=== PATIENT | female | born 1985 | race Caucasian/White ===

== ENCOUNTER 2025-02-06 18:55 | Inpatient (IN) | payer OTHER, SELFPAY ==
--- NOTE | ~2025-02-06 | CT_ITS ---
CLINICAL HISTORY: Abscess CT Abdomen and Pelvis W Contrast COMPARISON: None provided FINDINGS: Normal liver. Normal spleen. Normal kidneys. Normal adrenal glands. Normal pancreas. No visible cholelithiasis. No biliary dilation. No evidence of bowel obstruction or colitis. Normal appendix. Unremarkable bladder. Unremarkable uterus. No ascites. No pneumoperitoneum. No lymphadenopathy. No acute fracture. Mild degenerative changes in the spine. No abdominal aortic aneurysm. Fat-containing umbilical hernia. Upper anterior left labia and lower left anterior pelvic wall subcutaneous fat stranding and focal skin thickening. No visible soft tissue abscess. IMPRESSION: Findings consistent with upper anterior left labia and lower left anterior pelvic wall cellulitis. Nonemergent/incidental findings above. This document has been electronically signed by: Tevin Augustin MD on 02/07/2025 03:23:27
[2025-02-06 19:59] VITALS: BP 218/111; PULSE 120; RESP 16; TEMP 37.7; O2SAT 98; BMI 42.1
--- NOTE | 2025-02-06 19:59 | ED.SKABFB ---
HPI - Skin/Abscess/Foreign Bdy General Chief complaint: Skin/Abscess/Foreign Body Stated complaint: abscess groin may need to be drained Time Seen by Provider: 02/06/25 20:55 History of Present Illness ED Provider: Raheel Garcia MD HPI narrative: Patient reports pustule in the left pubic area. She shaves in the region. She says over the past few days it is growing despite self prescribing Keflex. Started feeling diaphoretic ill slightly lightheaded today came in febrile tachycardic. Sepsis activated by previous provider at triage Related Data Home Medications ?Medication ?Instructions ?Recorded ?Confirmed insulin lispro 100 unit/mL 34 - 40 unit continuous 02/07/25 02/07/25 subcutaneous solution (Humalog subcutaneous infusion DIRECTED U-100 Insulin) metformin 1,000 mg tablet 1,000 mg PO BID 02/07/25 02/07/25 nifedipine 60 mg tablet,extended 60 mg PO DAILY 02/07/25 02/07/25 release 24 hr vit no.133-ferrous 1 tab PO DAILY 02/07/25 02/07/25 fumarate 28 mg-folic acid 800 mcg tablet () Previous Rx's ?Medication ?Instructions ?Recorded amoxicillin 875 mg-potassium 1 tab PO Q12H 8 days #16 tabs 02/08/25 clavulanate 125 mg tablet doxycycline monohydrate 100 mg 100 mg PO BID 8 days #16 tabs 02/08/25 tablet Allergies Allergy/AdvReac Type Severity Reaction Status Date / Time No Known Allergies Allergy Verified 02/06/25 20:02 [facility] Past Medical History Medical History Non-insulin dependent type 2 diabetes mellitus Hypertension Social History Social History Household Members: Spouse Housing: House Do you presently have visiting nurse or other home services: No Patient Tobacco Use Status: Never used Tobacco Substance Use Type: Marijuana service: No Physical Exam Vital Signs: Vital Signs: Last Vital Signs Temp 97.0 F 02/08/25 12:32 Pulse 98 02/08/25 12:32 Resp 18 02/08/25 12:32 BP 130/80 02/08/25 12:32 Pulse Ox 98 02/08/25 12:32 O2 Del Method Room Air 02/08/25 12:32 BMI result Body Mass Index 42.1 Const: Other: EXAM: Gen: Alert, awake, well appearing, well hydrated. Diaphoretic Head: Atraumatic Eyes: Anicteric, Normal conjunctiva. ENT: Moist mucosa, no pallor. ? Neck: Supple. Skin: ?Proximally 2-3 cm diameter fluctuant erythematous area with central pustule in the left pubic region Respiratory: Breathing comfortably, No distress.Clear to auscultation bilaterally, symmetric chest expansion, No wheeze, rales, ronchi. Cardiovascular: Tachycardic and rhythm. No murmurs or rub. Well perfused periphery, warm extremities. No edema. ? Abdominal: No FOCAL TENDERNESS. Soft, no objective distension. No palpable masses or obvious organomegaly. ?No guarding, no rebound tenderness or other peritoneal findings. : No flank tenderness. Neuro: Alert. Gross movement of all extremities intact. ? Psych: Calm. Cooperative. MSK: No grossly visible deformity. 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 DM: last glucose checked yesterday 200 left groin abscess started 4 days ago, size of half dollar, started on keflex 500 mg 4x a day No hx of this in past, did sitz baths no change tachy and high BP, T 99.8 oral, does not appear toxic dry mucous membranes POC glucose: 211 IVF not currently on anything CLOMID only, U/S on to determine if she can get FET Plans: basic labs tylenol, ordered lactic acid just in case as this might be concerning for early sepsis. Reevaluation(s) Reevaluation #1: Signed up/assumed care at 2054. Vitals and presentation suggest sepsis. IV abx/30cc/kg bolus ordered. PT only needs 1710cc basef on ideal body wt Time: 21:04 Medications Administered Discontinued Medications Generic Name Dose Route Start Last Admin Trade Name Freq PRN Reason Stop Dose Admin Acetaminophen 975 mg 02/06/25 20:05 02/06/25 20:08 Acetaminophen 325 Mg Tablet PO 02/06/25 20:06 975 mg ONCE ONE Administration Acetaminophen 650 mg 02/06/25 22:09 02/08/25 04:23 Acetaminophen 325 Mg Tablet PO 650 mg Q6H PRN Administration Pain, Mild 1-3,fever,headache Ceftriaxone Sodium 2 gm 02/06/25 20:59 02/06/25 21:12 Ceftriaxone Sodium 2 Gm Vial IVPUSH 02/06/25 21:00 2 gm ONCE ONE Administration Enoxaparin Sodium 40 mg 02/06/25 23:00 02/07/25 22:58 Enoxaparin Sodium 40 Mg/0.4 Ml Syringe SUBCUT 40 mg Q24H AGUSTINA Administration Lactated Ringer's 3,441 mls @ 3,441 mls/hr 02/06/25 20:58 02/07/25 00:00 Lr 30 ml/kg infuse over 1 hr (3441 ml) 02/06/25 21:57 Infused IV Infusion .Q1H ONE Vancomycin HCl 1,500 mg/ 500 mls @ 333.333 mls/hr 02/06/25 21:32 02/07/25 00:08 Sodium Chloride IV 02/06/25 23:01 Infused ONCE ONE Infusion Piperacillin Sod/Tazobactam 100 mls @ 200 mls/hr 02/06/25 23:00 02/08/25 12:14 Sod 4.5 gm/ Sodium Chloride IV Infused Q6H AGUSTINA Infusion Vancomycin HCl 1,500 mg/ 500 mls @ 333.333 mls/hr 02/07/25 08:00 02/07/25 23:35 Sodium Chloride IV Not Given Q12H AGUSTINA Lactated Ringer's 1,000 mls @ 999 mls/hr 02/07/25 02:30 02/07/25 08:43 Lr IV 02/07/25 03:30 Infused .Q1H1M AGUSTINA Infusion Vancomycin HCl 1,250 mg/ 250 mls @ 166.667 mls/hr 02/07/25 22:00 02/08/25 06:41 Sodium Chloride IV Infused Q8H AGUSTINA Infusion Insulin Human Lispro 0 unit 02/07/25 07:30 02/08/25 11:40 Insulin Lispro 100 Unit/Ml 3 Ml Vial SUBCUT 4 unit QIDACHS AGUSTINA Administration Protocol Iohexol 100 ml 02/07/25 01:47 02/07/25 01:48 Iohexol 350 Mg/Ml 100 Ml Infus..Btl IV 02/07/25 01:48 100 ml ONCE ONE Administration Ketorolac Tromethamine 30 mg 02/07/25 22:10 02/07/25 22:58 Ketorolac Tromethamine 30 Mg/Ml Vial IVPUSH 02/07/25 22:11 30 mg ONCE ONE Administration Lidocaine/Epinephrine 10 ml 02/06/25 21:32 02/06/25 23:03 Lidocaine Hcl 1%/Epi 1:100,000 20 Ml Vial INFILTRATI 02/06/25 21:33 10 ml ONCE ONE Administration Nifedipine 60 mg 02/07/25 11:15 02/08/25 07:42 Nifedipine Er 60 Mg Tab.Er.24 PO 60 mg DAILY AGUSTINA Administration Protocol Ondansetron HCl 4 mg 02/06/25 22:09 02/08/25 04:23 Ondansetron Hcl 4 Mg/2 Ml Vial IVPUSH 4 mg Q8H PRN Administration Nausea and Vomiting Sodium Chloride 3 ml 02/07/25 00:00 02/08/25 07:44 0.9 % Sodium Chloride Flush 3 Ml Syringe IVFLUSH 3 ml QSHIFT AGUSTINA Administration Medical Decision Making Medical Decision Making [facility] Narrative: 39-year-old female with pustule/abscess cellulitis in the left pubic region. Diaphoretic no other focal infectious symptomatology. She is tachycardic but not hypotensive. Not ill or toxic looking. She has no other clear source of infection side from the skin infection. Incision and drainage was performed at the bedside culture sent in order to initiate source control. Lactate elevated but not over 4. No septic shock diagnosed. Continuous reassessment with fluid hydration. Broad-spectrum antibiotics initiated Differential Diagnosis Abscess, cellulitis, sepsis, severe sepsis, folliculitis Lab Data [facility] Lab Attestation statement: I reviewed the patient's lab results. 02/08/25 05:31 02/08/25 05:31 Labs: Lab Results 02/06/25 02/06/25 Range/Units 20:05 20:30 WBC 14.8 H (4.8-10.8) X10*3/uL RBC 4.82 (4.20-5.50) X10*6/uL Hgb 13.9 (12.0-16.0) g/dl Hct 40.2 (37.0-47.0) % MCV 83.4 (80.0-98.0) fL MCH 28.8 (27.0-33.0) pg MCHC 34.6 (31.0-35.0) g/dl RDW 12.4 (11.0-16.0) % Plt Count 379 (160-400) X10*3/uL MPV 8.9 L (9.4-12.3) fL Immature Gran % (Auto) 0.7 H (0.0-0.4) % Neut % (Auto) 74.1 H (45-73) % Lymph % (Auto) 16.0 L (20-40) % [place] % (Auto) 6.8 (2-11) % Eos % (Auto) 2.0 (0-4) % Baso % (Auto) 0.4 (0-2) % Lymph # (Auto) 2.4 (1.2-4.9) X10*3/uL [place] # (Auto) 1.0 (0.1-1.2) X10*3/uL Eos # (Auto) 0.3 (0.0-0.4) X10*3/uL Baso # (Auto) 0.1 (0.0-0.2) X10*3/uL Abs Immat Gran (auto) 0.11 H (0.00-0.03) X10*3/uL Absolute Neuts (auto) 10.9 H (2.0-8.3) x10*3/uL Absolute Nucleated RBC 0.000 (0.0-0.012) X10*3/uL Nucleated RBC % (auto) 0.0 (0.0-0.2) /100WBC Sodium 136 (135-145) mmol/L Potassium 3.7 (3.3-5.1) mmol/L Chloride 99 (96-108) mmol/L Carbon Dioxide 24 (22-29) mmol/L Anion Gap 17 (12-20) BUN 8 L (9-16) mg/dL Creatinine 0.68 (0.5-1.4) mg/dL Estim Creat Clear Calc 141.8 Estimated GFR > 60 POC Glucose 211 H (60-115) mg/dL Random Glucose 219 H (60-115) mg/dL Lactic Acid 3.0 H* (0.5-2.0) mmol/L Calcium 9.7 (8.4-10.2) mg/dL Total Bilirubin 0.3 (0.0-1.0) mg/dL AST 37 H (5-31) U/L ALT 48 H (0-31) U/L Alkaline Phosphatase 95 (39-117) U/L Total Protein 8.3 H (6.5-8.0) g/dL Albumin 5.0 (3.5-5.0) g/dL Independent Interpretation I performed an independent interpretation of an: EKG (Rhythm strip sinus tachycardia) Procedures Abscess I/D Site: abdomen (Lower left pubic region) Side (if applicable): left Local Anesthetic: lidocaine 1% and with epi Amount of anesthesia used (mL): 8 Technique: incised with blade Amount of fluid expressed (mL): 2 Sent for culture/gram staining?: Yes Irrigation: Yes Packing used?: none Complications: pain Critical Care Time Critical Care Time Critical Care Time: Yes Total Critical Care Time: 30 Attestation: ED Critical Care: Authorized and Performed by: Raheel Garcia MD Total critical care time: Approximately 30 Due to a high probability of clinically significant, life threatening deterioration, the patient required my highest level of preparedness to intervene emergently and I personally spent this critical care time directly and personally managing the patient. This critical care time included obtaining a history; examining the patient; pulse oximetry; ordering and review of studies; arranging urgent treatment with development of a management plan; evaluation of patient's response to treatment; frequent reassessment; and, discussions with other providers. This critical care time was performed to assess and manage the high probability of imminent, life-threatening deterioration that could result in multi-organ failure. It was exclusive of separately billable procedures and treating other patients and teaching time. Discharge Plan Discharge Clinical Impression: Abscess of vagina, Sepsis, Hyperglycemia Patient Disposition: Admitted As Inpatient Interventions: Admission Worksheet (ED) Last Done: 02/07/25 06:36 Discharge Date/Time: 02/07/25 08:13
[2025-02-06] MEDS: Acetaminophen 325 MG TABLET 975 MG PO (20:08)
[2025-02-06 20:11] LABS: Glucose, Whole Blood 211 mg/dL (60-115)
[2025-02-06 20:33] VITALS: BP 172/98; PULSE 120; RESP 22; TEMP 37.8; O2SAT 96
[2025-02-06 20:40] LABS: MANUAL DIFF FLAG NO
[2025-02-06 20:41] LABS: Basophils Absolute Auto 0.1 X10*3/uL (0.0-0.2); Basophils Percent Auto 0.4 % (0-2); Eosinophils Absolute Auto 0.3 X10*3/uL (0.0-0.4); Hematocrit 40.2 % (37.0-47.0); Hemoglobin 13.9 g/dl (12.0-16.0); Imm Gran Abs Auto 0.11 X10*3/uL (0.00-0.03); Imm Gran Pct Auto 0.7 % (0.0-0.4); Lymphocytes Absolute Auto 2.4 X10*3/uL (1.2-4.9); Mean Corpuscular HGB Conc 34.6 g/dl (31.0-35.0); Mean Corpuscular Hemoglobin 28.8 pg (27.0-33.0); Mean Corpuscular Volume 83.4 fL (80.0-98.0); Mean Platelet Volume 8.9 fL (9.4-12.3); Monocytes Percent Auto 6.8 % (2-11); Neutrophils Absolute Auto 10.9 x10*3/uL (2.0-8.3); Neutrophils Percent Auto 74.1 % (45-73); Platelet Count 379 X10*3/uL (160-400); Red Blood Count 4.82 X10*6/uL (4.20-5.50); Red Cell Distribution Width 12.4 % (11.0-16.0); White Blood Count 14.8 X10*3/uL (4.8-10.8)
[2025-02-06 20:54] LABS: Alanine Aminotransferase 48 U/L (0-31); Alkaline Phosphatase 95 U/L (39-117); Anion Gap 17 (12-20); Aspartate Amino Transferase 37 U/L (5-31); Bilirubin Total 0.3 mg/dL (0.0-1.0); Blood Urea Nitrogen 8 mg/dL (9-16); Calcium 9.7 mg/dL (8.4-10.2); Carbon Dioxide 24 mmol/L (22-29); Chloride 99 mmol/L (96-108); Creatinine Clr Calc Pharmacy 141.8; Estimated Glomerular Filt Rate > 60; Glucose Random 219 mg/dL (60-115); Potassium 3.7 mmol/L (3.3-5.1); Sodium 136 mmol/L (135-145); Total Protein 8.3 g/dL (6.5-8.0)
[2025-02-06] MEDS: cefTRIAXone sodium 2 GM VIAL IVPUSH (21:12)
[2025-02-06 21:28] VITALS: BP 167/85; PULSE 107; RESP 19; TEMP 37.6; O2SAT 96
[2025-02-06] MEDS: vancomycin HCL 1,500 MG in 0.9 % Sodium Chloride 500 ML 333.33 MG IV (21:53)
--- NOTE | 2025-02-06 22:10 | PM.IMHP ---
History of Present Illness Date of Service: 02/07/25 Chief Complaint: abscess This has a 39-year-old female with pertinent history of als-wnvaabc-pfodouvox diabetes mellitus, hypertension who presents to the emergency department for concerns of groin abscess. Patient states her symptoms started 4 days prior to presentation. 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 Patient noticed swelling of her left groin with redness and pain. Her symptoms were progressive. Patient started Keflex 1 day prior to presentation and did not notice any improvement in symptoms. She denies fever, chills, chest pain, palpitations, shortness of breath, abdominal pain, changes in urinary or bowel habits. Patient denies any previous abscess but had a Bartholin cyst. In the emergency department, patient was found to be septic and I and D performed by ER physician. Leukocytosis of 14 and lactic acid 3. Patient was given IV fluids and broad-spectrum IV antibiotics. Review of Systems Constitutional: Constitutional: Reports no additional constitutional complaints Cardiovascular: Cardiovascular: Reports no additional cardiovascular complaints Respiratory: Respiratory: Reports no additional respiratory complaints Gastrointestinal: Gastrointestinal: Reports no additional gastrointestinal complaints Genitourinary: Genitourinary: Reports no additional female genitourinary complaints [facility] Medical History Non-insulin dependent type 2 diabetes mellitus Hypertension Pertinent family history: No family history of early CAD Social History Patient Tobacco Use Status: Never used Tobacco Smoked in Last 30 Days: No Use of substances other than those prescribed or required for medical reasons: Yes Substance Use Type: Marijuana Substance Use Frequency: Occasionally Advance Directives: No Advance Directives Information Provided: No Do you have a plan to hurt others: No Plan Nutrition Risks: No Nutritional Risk Patient : No Meds Allergies Allergy/AdvReac Type Severity Reaction Status Date / Time No Known Allergies Allergy Verified 02/06/25 20:02 Active Medications: Current Medications Vancomycin HCl 1,500 mg/ (Sodium Chloride) 500 mls @ 333.333 mls/hr IV ONCE ONE Stop: 02/06/25 23:01 Last Admin: 02/06/25 21:53 Dose: 333.33 mls/hr Physical Exam Vital Signs and Narrative: Vital Signs: Last Vital Signs Temp 99.7 F 02/06/25 21:28 Pulse 107 H 02/06/25 21:28 Resp 19 02/06/25 21:28 BP 167/85 H 02/06/25 21:28 Pulse Ox 96 02/06/25 21:28 O2 Del Method Room Air 02/06/25 21:28 BMI result Body Mass Index 42.1 Middle-aged female lying in bed in no distress Neck supple, no JVD Regular rate and rhythm, S1-S2 heard Regular breath sounds bilaterally, no wheezing or crackles appreciated Abdomen soft nontender, no guarding, no rigidity Patient is awake, alert and oriented to self, place, time and person ; no focal motor deficit Examination performed 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 the 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); left groin with swelling, erythema and tenderness draining serosanguineous fluid Psych: Normal mood No pedal edema Results Labs 02/06/25 20:30 02/06/25 20:30 Labs: Laboratory Results - last 24 hr 02/06/25 02/06/25 20:05 20:30 MCV 83.4 MCH 28.8 MCHC 34.6 RDW 12.4 Plt Count 379 MPV 8.9 L Immature Gran % (Auto) 0.7 H Neut % (Auto) 74.1 H Lymph % (Auto) 16.0 L [place] % (Auto) 6.8 Eos % (Auto) 2.0 Baso % (Auto) 0.4 Lymph # (Auto) 2.4 [place] # (Auto) 1.0 Eos # (Auto) 0.3 Baso # (Auto) 0.1 Abs Immat Gran (auto) 0.11 H Absolute Neuts (auto) 10.9 H Absolute Nucleated RBC 0.000 Nucleated RBC % (auto) 0.0 Anion Gap 17 Estim Creat Clear Calc 141.8 Estimated GFR > 60 POC Glucose 211 H Random Glucose 219 H Lactic Acid 3.0 H* Calcium 9.7 Total Bilirubin 0.3 AST 37 H ALT 48 H Alkaline Phosphatase 95 Total Protein 8.3 H Albumin 5.0 Assessment and Plan (1) Sepsis: Status: Acute (2) Abscess of vagina: Status: Acute (3) Hyperglycemia: Status: Acute Plan This has a 39-year-old female with pertinent history of jfw-gzbenvk-uoxtztlht diabetes mellitus, hypertension who presents to the emergency department for concerns of groin abscess. #. Sepsis due to vaginal abscess: Will admit patient with broad-spectrum IV antibiotics. Resuscitated with IV crystalloids. Lactic acid and blood culture obtained. I and D performed by ER physician, culture pending. Obtaining CT of pelvis to delineate underlying anatomy. May need gynecologic consult pending imaging #. Acute lactic acidosis due to sepsis #. Elevated transaminases due to sepsis #. Zpg-ohepkxr-dspjwwnli diabetes mellitus with hyperglycemia: Initiating Accu-Cheks with sliding scale insulin before meals and at bedtime #. Hypertension: On nifedipine #. Obesity class 3: Diet and exercise Med rec pending DVT prophylaxis: Lovenox Full code Admit as inpatient and will require two night minimum hospital stay for IV antibiotics (as above), which is not possible in a lesser acute setting. Quality Stroke Does the patient have a stroke diagnosis?: No VTE Prior VTE?: No VTE Risk Level:: Medical - moderate - high VTE Device Contraindication: Treatment Not Indicated VTE Drug Contraindication: N/A - Med Ordered
[2025-02-06 22:39] LABS: Reflex Lactate? Lactic Acid Added
[2025-02-06 22:50] LABS: HCG Quantitative < 2 mIU/mL
[2025-02-06] MEDS: Enoxaparin Sodium 40 MG/0.4 ML SYRINGE SUBCUT (22:58)
[2025-02-06] MEDS: Lidocaine HCl 1%/Epi 1:100,000 20 ML VIAL 10 ML INFILTRATI (23:03)
[2025-02-06 23:04] VITALS: BP 143/73; PULSE 90; RESP 19; TEMP 525.8; TEMP 978.5; O2SAT 97
[2025-02-06] MEDS: Piperacillin Sodium/Tazobactam 4.5 GM in 0.9 % Sodium Chloride 100 ML IV (23:30)
[2025-02-07 00:08] VITALS: BP 132/66; PULSE 93; RESP 22; TEMP 37.2; O2SAT 97
--- NOTE | 2025-02-07 00:10 | PC.NURSE ---
Total of 2000cc of fluids administered per MD verbal order.
[2025-02-07 00:12] LABS: ~Lactic Acid-LAB USE ONLY 2.1 mmol/L (0.5-2.0)
[2025-02-07 00:34] VITALS: BP 142/78; PULSE 89; RESP 19; O2SAT 96
[2025-02-07 00:45] LABS: Appearance Urine Clear; Color Urine Yellow; Glucose Urine UA Negative (Negative); Leukocyte Esterase Urine Small (1+) (Negative); Nitrite Urine Negative (Negative); PH 6.5 (5.0-9.0); Specific Gravity - Urine >= 1.030 (1.005-1.025); UMIC TRIGGER UACC YES; Urine Blood Negative (Negative); Urine Ketones 15 mg/dL (Negative); Urine Protein Negative (Neg-Trace)
[2025-02-07 01:02] LABS: Bacteria Urine Trace (None Seen); Hyaline Casts Urine 0-2 /LPF (0-2); RBC Urine 0-2 /HPF (0-2); UACC Culture Trigger YES; WBC Urine 0-5 /HPF (0-5)
[2025-02-07 01:47] LABS: Reflex Lactate? 2 Y
[2025-02-07] MEDS: iohexoL 350 MG/ML 100 ML INFUS..BTL IV (01:48)
[2025-02-07 02:24] LABS: ~Lactic Acid-LAB USE ONLY 3.9 mmol/L (0.5-2.0)
[2025-02-07] MEDS: Lactated Ringers 1,000 ML 999 ML IV (02:47)
[2025-02-07] MEDS: Piperacillin Sodium/Tazobactam 4.5 GM in 0.9 % Sodium Chloride 100 ML IV ×4 (04:28→22:57)
[2025-02-07] MEDS: Acetaminophen 325 MG TABLET 650 MG PO ×3 (05:17→17:37)
[2025-02-07 05:26] LABS: MANUAL DIFF FLAG NO
[2025-02-07 05:31] LABS: Basophils Percent Auto 0.4 % (0-2); Eosinophils Absolute Auto 0.1 X10*3/uL (0.0-0.4); Eosinophils Percent Auto 1.3 % (0-4); Hematocrit 35.1 % (37.0-47.0); Hemoglobin 11.9 g/dl (12.0-16.0); Imm Gran Abs Auto 0.05 X10*3/uL (0.00-0.03); Imm Gran Pct Auto 0.5 % (0.0-0.4); Lymphocytes Absolute Auto 2.1 X10*3/uL (1.2-4.9); Lymphocytes Percent Auto 21.5 % (20-40); Mean Corpuscular HGB Conc 33.9 g/dl (31.0-35.0); Mean Corpuscular Hemoglobin 28.4 pg (27.0-33.0); Mean Corpuscular Volume 83.8 fL (80.0-98.0); Monocytes Absolute Auto 0.9 X10*3/uL (0.1-1.2); Neutrophils Absolute Auto 6.5 x10*3/uL (2.0-8.3); Neutrophils Percent Auto 67.3 % (45-73); Platelet Count 303 X10*3/uL (160-400); Red Blood Count 4.19 X10*6/uL (4.20-5.50); Red Cell Distribution Width 12.5 % (11.0-16.0); White Blood Count 9.7 X10*3/uL (4.8-10.8)
[2025-02-07 05:49] LABS: Anion Gap 16 (12-20); Blood Urea Nitrogen 7 mg/dL (9-16); Calcium 8.7 mg/dL (8.4-10.2); Carbon Dioxide 23 mmol/L (22-29); Chloride 99 mmol/L (96-108); Estimated Glomerular Filt Rate > 60; Glucose Random 276 mg/dL (60-115); Potassium 4.1 mmol/L (3.3-5.1); Sodium 134 mmol/L (135-145)
[2025-02-07 05:59] VITALS: BP 146/73; PULSE 100; RESP 16; TEMP 37.4; O2SAT 95
[2025-02-07 07:26] LABS: Glucose, Whole Blood 286 mg/dL (60-115)
[2025-02-07] MEDS: Insulin Lispro 100 UNIT/ML 3 ML VIAL SUBCUT ×4 (07:47→21:15)
[2025-02-07] MEDS: vancomycin HCL 1,500 MG in 0.9 % Sodium Chloride 500 ML 333.33 MG IV (07:47)
[2025-02-07] MEDS: 0.9 % Sodium Chloride Flush 3 ML SYRINGE IVFLUSH ×3 (07:47→23:04)
[2025-02-07 08:22] LABS: Estimated Average Glucose 200 mg/dL; Hemoglobin A1c % 8.6 % (<6.0)
[2025-02-07 08:24] VITALS: BMI 42.1
--- NOTE | 2025-02-07 08:56 | PHA.MEDREC ---
Addendum entered by Gerald Mercer [facility] 02/07/25 09:49: MED REC CHECKED BY [facility] Original Note: Pharmacy Consult ? Medication Reconciliation Pharmacy has completed the medication reconciliation. Spoke to patient to confirm med list. Patient states she is no longer on Ovidrel inj and Crinone Vag cream. patient confirmed she has a Tandem insulin pump that infuses Humalog U-100 up to 35-40 daily ( PATIENT TOOK OFF PUMP PRIOR TO VISIT). Patient last had her medications yesterday
[2025-02-07 09:49] VITALS: BP 136/66; PULSE 92; RESP 16; TEMP 36.6; O2SAT 97
--- NOTE | 2025-02-07 10:54 | MHC.CM.PN ---
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
--- NOTE | 2025-02-07 11:08 | HO.PM.IMPN ---
Subjective Subjective Date of Service: 02/07/25 Interval History: F\U Vaginal abscess seens and evaluated had fever\chills overnight reporting drainage from vaginal wound no other events Review of Systems Review of Systems: Yes all other systems are reviewed and are negative Physical Exam Vital Signs: Vital Signs: Last Vital Signs Temp 98 F 02/07/25 09:49 Pulse 92 02/07/25 09:49 Resp 16 02/07/25 09:49 BP 136/66 02/07/25 09:49 Pulse Ox 97 02/07/25 09:49 O2 Del Method Room Air 02/07/25 09:49 BMI result Body Mass Index 42.1 Const: Other: Constitutional : Awake, interactive, not in distress Neck : Normal inspection, Supple Cardiovascular : RRR, no JVP, no lower extremity edema Respiratory : good bilateral air entry, no crackles, wheezes or rhonchi Gastrointestinal: soft, lax, Normal bowel sounds, Non tender Skin : Warm, Dry Neurological : Alert & oriented x3, No focal deficit Objective Data Active Medications Acetaminophen (Acetaminophen 325 Mg Tablet) 650 mg PO Q6H PRN PRN Reason: Pain, Mild 1-3,fever,headache Last Admin: 02/07/25 05:17 Dose: 650 mg Documented By: MANASA Calcium Carbonate (Calcium Carbonate 750 Mg Tab.Chew) 750 mg PO Q4H PRN PRN Reason: Heartburn Dextrose (Dextrose 50 % 25 Gm/50 Ml Syringe) 25 gm IVPUSH Q15M PRN; Protocol PRN Reason: per Hypoglycemia Standing Ord. Enoxaparin Sodium (Enoxaparin Sodium 40 Mg/0.4 Ml Syringe) 40 mg SUBCUT Q24H [facility] Last Admin: 02/06/25 22:58 Dose: 40 mg Documented By: MANASA Glucose (Glucose Gel 15 Gm Gel..Gram.) 15 gm PO Q15M PRN; Protocol PRN Reason: per Hypoglycemia Standing Ord. Piperacillin Sod/Tazobactam (Sod 4.5 gm/ Sodium Chloride) 100 mls @ 200 mls/hr IV Q6H [facility] Last Infusion: 02/07/25 04:58 Dose: Infused Documented By: MANASA Vancomycin HCl 1,500 mg/ (Sodium Chloride) 500 mls @ 333.333 mls/hr IV Q12H [facility] Last Infusion: 02/07/25 10:27 Dose: Infused Documented By: CELSO Insulin Human Lispro (Insulin Lispro 100 Unit/Ml 3 Ml Vial) 0 unit SUBCUT QIDACHS [facility]; Protocol Last Admin: 02/07/25 07:47 Dose: 6 unit Documented By: AZEB Magnesium Hydroxide (Milk Of Magnesia 30 Ml Oral.Susp) 30 ml PO DAILY PRN PRN Reason: Constipation Melatonin (Melatonin 3 Mg Tablet) 6 mg PO BEDTIME PRN PRN Reason: Insomnia Ondansetron HCl (Ondansetron Hcl 4 Mg/2 Ml Vial) 4 mg IVPUSH Q8H PRN PRN Reason: Nausea and Vomiting Pharmacy Consult (Consult Rx Vancomycin Dosing) 1 each MISCELLANE DAILY PRN PRN Reason: Consult order Sodium Chloride (0.9 % Sodium Chloride Flush 3 Ml Syringe) 3 ml IVFLUSH [facility] Last Admin: 02/07/25 07:47 Dose: 3 ml Documented By: AZEB Labs 02/07/25 04:42 02/07/25 04:42 Labs: Laboratory Results - last 24 hr 02/06/25 02/06/25 02/06/25 20:05 20:30 22:24 MCV 83.4 MCH 28.8 MCHC 34.6 RDW 12.4 Plt Count 379 MPV 8.9 L Immature Gran % (Auto) 0.7 H Neut % (Auto) 74.1 H Lymph % (Auto) 16.0 L [place] % (Auto) 6.8 Eos % (Auto) 2.0 Baso % (Auto) 0.4 Lymph # (Auto) 2.4 [place] # (Auto) 1.0 Eos # (Auto) 0.3 Baso # (Auto) 0.1 Abs Immat Gran (auto) 0.11 H Absolute Neuts (auto) 10.9 H Absolute Nucleated RBC 0.000 Nucleated RBC % (auto) 0.0 Anion Gap 17 Estim Creat Clear Calc 141.8 Estimated GFR > 60 POC Glucose 211 H Random Glucose 219 H Estimat Average Glucose Hemoglobin A1c % Lactic Acid 3.0 H* Lactic Acid F/U @ 2Hr Lactic Acid F/U @ 4Hr Calcium 9.7 Total Bilirubin 0.3 AST 37 H ALT 48 H Alkaline Phosphatase 95 Total Protein 8.3 H Albumin 5.0 Beta HCG, Quant < 2 Urine Color Urine Appearance Urine pH Ur Specific [place] Urine Protein Urine Glucose (UA) Urine Ketones Urine Blood Urine Nitrite Ur Leukocyte Esterase Urine RBC Urine WBC Ur Squamous Epith Cells Urine Bacteria Hyaline Casts 02/06/25 02/07/25 02/07/25 23:44 00:34 02:03 MCV MCH MCHC RDW Plt Count MPV Immature Gran % (Auto) Neut % (Auto) Lymph % (Auto) [place] % (Auto) Eos % (Auto) Baso % (Auto) Lymph # (Auto) [place] # (Auto) Eos # (Auto) Baso # (Auto) Abs Immat Gran (auto) Absolute Neuts (auto) Absolute Nucleated RBC Nucleated RBC % (auto) Anion Gap Estim Creat Clear Calc Estimated GFR POC Glucose Random Glucose Estimat Average Glucose Hemoglobin A1c % Lactic Acid Lactic Acid F/U @ 2Hr 2.1 H* Lactic Acid F/U @ 4Hr 3.9 H* Calcium Total Bilirubin AST ALT Alkaline Phosphatase Total Protein Albumin Beta HCG, Quant Urine Color Yellow Urine Appearance Clear Urine pH 6.5 Ur Specific [place] >= 1.030 H Urine Protein Negative Urine Glucose (UA) Negative Urine Ketones 15 Urine Blood Negative Urine Nitrite Negative Ur Leukocyte Esterase Small (1+) H Urine RBC 0-2 Urine WBC 0-5 Ur Squamous Epith Cells 6-10 Urine Bacteria Trace Hyaline Casts 0-2 02/07/25 02/07/25 04:42 07:22 MCV 83.8 MCH 28.4 MCHC 33.9 RDW 12.5 Plt Count 303 MPV 9.0 L Immature Gran % (Auto) 0.5 H Neut % (Auto) 67.3 Lymph % (Auto) 21.5 Stone % (Auto) 9.0 Eos % (Auto) 1.3 Baso % (Auto) 0.4 Lymph # (Auto) 2.1 Stone # (Auto) 0.9 Eos # (Auto) 0.1 Baso # (Auto) 0.0 Abs Immat Gran (auto) 0.05 H Absolute Neuts (auto) 6.5 Absolute Nucleated RBC 0.000 Nucleated RBC % (auto) 0.0 Anion Gap 16 Estim Creat Clear Calc 158.0 Estimated GFR > 60 POC Glucose 286 H Random Glucose 276 H Estimat Average Glucose 200 Hemoglobin A1c % 8.6 H Lactic Acid Lactic Acid F/U @ 2Hr Lactic Acid F/U @ 4Hr Calcium 8.7 D Total Bilirubin AST ALT Alkaline Phosphatase Total Protein Albumin Beta HCG, Quant Urine Color Urine Appearance Urine pH Ur Specific [place] Urine Protein Urine Glucose (UA) Urine Ketones Urine Blood Urine Nitrite Ur Leukocyte Esterase Urine RBC Urine WBC Ur Squamous Epith Cells Urine Bacteria Hyaline Casts Assessment and Plan (1) Abscess of vagina: Status: Acute (2) Sepsis: Status: Acute (3) Acute lactic acidosis: Status: Acute Plan This has a 39-year-old female with pertinent history of vtz-zhktlak-remdofihy diabetes mellitus, hypertension who presents to the emergency department for concerns of groin abscess. # Sepsis due to vaginal abscess Abscess drained in ED CT of pelvis showed upper anterior left labia and lower left anterior pelvic wall cellulitis discussed with Dr Asher, asked to be consulted if not improving on antibiotics Continue IV Vancomycin and Zosyn pending final cultures DC IV crystalloids. wound culture pending # Acute lactic acidosis due to sepsis and Metformin IV boluses given # Elevated transaminases due to sepsis improving , follow LFT # Zfj-wohxhje-atisteqlo diabetes mellitus with hyperglycemia Accu-Cheks with sliding scale insulin hold Metformin # Hypertension On nifedipine # Obesity class 3 Diet and exercise DVT prophylaxis: Lovenox Full code Admit as inpatient and will require overnight minimum hospital stay for IV antibiotics (as above), which is not possible in a lesser acute setting. Quality Stroke Does the patient have a stroke diagnosis?: No VTE Prior VTE?: No VTE Risk Level:: Medical - moderate - high VTE Device Contraindication: Treatment Not Indicated VTE Drug Contraindication: N/A - Med Ordered
[2025-02-07 11:18] LABS: Glucose, Whole Blood 208 mg/dL (60-115)
[2025-02-07] MEDS: NIFEdipine ER 60 MG TAB.ER.24 PO (11:35)
--- NOTE | 2025-02-07 14:42 | HO.WOUND ---
Wound Consult: Initial 39yr old female admitted to [facility] [place] on 02/06/25 - See progress notes and H&P for detailed history.? Wound consult placed for Labia.? Patient agreeable to assessment and photo documentation.? Patient reports the site is significantly improved since admission. S/P I&D in ED for abcess. Left Labia - Majora / suprapubic area Etiology: Abscess - S/P I&D in ED ?? Wound Bed: small open area with small scant slough noted Drainage / Odor: dried red drainage to dressing Edges: ? defined Michelle wound: ?some induration at I&D site and pink red erythema - improving per pt statement no fluctuance noted Pain: tenderness reported Goals of Treatment: ? cover with dry gauze for drainage management Recommendations: When applicable maintain blood glucose levels per Providers order. Left Labia - Cleanse with NS moist gauze, or routine showering with soap and water. Apply dry gauze dressing secure in place. Change daily. Re-consult wound care Nurse for wound deterioration or wound changes.
[2025-02-07 15:08] VITALS: BP 133/69; PULSE 94; RESP 18; TEMP 36.6; O2SAT 97
[2025-02-07 15:47] LABS: Glucose, Whole Blood 212 mg/dL (60-115)
[2025-02-07 19:27] VITALS: BP 135/86; PULSE 100; RESP 18; TEMP 36.4; O2SAT 97
[2025-02-07 20:21] LABS: Vancomycin Random 4.9 mcg/mL (15-20)
[2025-02-07 20:21] LABS: Glucose, Whole Blood 249 mg/dL (60-115)
[2025-02-07] MEDS: vancomycin HCL 1,250 MG in 0.9 % Sodium Chloride 250 ML 166.67 MG IV (21:14)
[2025-02-07] MEDS: Ketorolac Tromethamine 30 MG/ML VIAL IVPUSH (22:58)
[2025-02-07] MEDS: Enoxaparin Sodium 40 MG/0.4 ML SYRINGE SUBCUT (22:58)
[2025-02-08 04:00] VITALS: BP 110/65; PULSE 100; RESP 18; TEMP 36.9; O2SAT 96
[2025-02-08] MEDS: Acetaminophen 325 MG TABLET 650 MG PO (04:23)
[2025-02-08] MEDS: ondansetron HCL 4 MG/2 ML VIAL IVPUSH (04:23)
[2025-02-08] MEDS: Piperacillin Sodium/Tazobactam 4.5 GM in 0.9 % Sodium Chloride 100 ML IV ×2 (04:24→11:40)
[2025-02-08] MEDS: vancomycin HCL 1,250 MG in 0.9 % Sodium Chloride 250 ML 166.67 MG IV (05:06)
[2025-02-08 06:01] LABS: MANUAL DIFF FLAG NO
[2025-02-08 06:19] LABS: Basophils Absolute Auto 0.1 X10*3/uL (0.0-0.2); Basophils Percent Auto 0.3 % (0-2); Eosinophils Absolute Auto 0.2 X10*3/uL (0.0-0.4); Hematocrit 34.3 % (37.0-47.0); Hemoglobin 12.1 g/dl (12.0-16.0); Imm Gran Abs Auto 0.11 X10*3/uL (0.00-0.03); Imm Gran Pct Auto 0.6 % (0.0-0.4); Lymphocytes Absolute Auto 1.8 X10*3/uL (1.2-4.9); Lymphocytes Percent Auto 9.6 % (20-40); Mean Corpuscular HGB Conc 35.3 g/dl (31.0-35.0); Mean Corpuscular Hemoglobin 28.9 pg (27.0-33.0); Mean Corpuscular Volume 82.1 fL (80.0-98.0); Mean Platelet Volume 9.1 fL (9.4-12.3); Monocytes Absolute Auto 1.5 X10*3/uL (0.1-1.2); Monocytes Percent Auto 8.1 % (2-11); Neutrophils Absolute Auto 14.8 x10*3/uL (2.0-8.3); Neutrophils Percent Auto 80.4 % (45-73); Platelet Count 310 X10*3/uL (160-400); Red Blood Count 4.18 X10*6/uL (4.20-5.50); Red Cell Distribution Width 12.6 % (11.0-16.0); White Blood Count 18.5 X10*3/uL (4.8-10.8)
[2025-02-08 06:29] LABS: Anion Gap 16 (12-20); Blood Urea Nitrogen 5 mg/dL (9-16); Calcium 9.1 mg/dL (8.4-10.2); Carbon Dioxide 22 mmol/L (22-29); Chloride 98 mmol/L (96-108); Creatinine Clr Calc Pharmacy 163.4; Estimated Glomerular Filt Rate > 60; Glucose Random 288 mg/dL (60-115); Potassium 3.9 mmol/L (3.3-5.1); Sodium 132 mmol/L (135-145)
[2025-02-08 07:33] LABS: Glucose, Whole Blood 298 mg/dL (60-115)
[2025-02-08] MEDS: Insulin Lispro 100 UNIT/ML 3 ML VIAL SUBCUT ×2 (07:42→11:40)
[2025-02-08] MEDS: NIFEdipine ER 60 MG TAB.ER.24 PO (07:42)
[2025-02-08] MEDS: 0.9 % Sodium Chloride Flush 3 ML SYRINGE IVFLUSH (07:44)
[2025-02-08 07:45] VITALS: BP 118/60; PULSE 95; RESP 18; TEMP 36.2; O2SAT 95
--- NOTE | 2025-02-08 11:17 | PM.DS ---
DS: Providers Provider Date of Service: 02/08/25 Date of admission: 02/06/25 22:09 Date of discharge: 02/08/25 Primary care physician: Cheryl Peralta DNP Consults: 02/07/25 08:36 Consult to Wound Care Routine Reason for consultation: vaginal abscess Attending physician on discharge: Garrett Caceres Discharging clinician: Joan Stein DS: Diagnosis Discharge Diagnosis (1) Sepsis: Status: Acute (2) Acute lactic acidosis: Status: Acute (3) Abscess of vulva: Status: Acute DS: Summary Hospital Course Hospital Course: From H&P on the day of admission This has a 39-year-old female with pertinent history of rem-gqzmspy-ubsdwtljv diabetes mellitus, hypertension who presents to the emergency department for concerns of groin abscess. Patient states her symptoms started 4 days prior to presentation. 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 Patient noticed swelling of her left groin with redness and pain. Her symptoms were progressive. Patient started Keflex 1 day prior to presentation and did not notice any improvement in symptoms. She denies fever, chills, chest pain, palpitations, shortness of breath, abdominal pain, changes in urinary or bowel habits. Patient denies any previous abscess but had a Bartholin cyst. In the emergency department, patient was found to be septic and I and D performed by ER physician. Leukocytosis of 14 and lactic acid 3. Patient was given IV fluids and broad-spectrum IV antibiotics. Sepsis due to abscess of left labia s/p drainage in the ED. CT of pelvis showed upper anterior left labia and lower left anterior pelvic wall cellulitis. Treated with IV vancomycin and Zosyn. White count initially resolved and then increased to 18.5 on day of discharge. She remained afebrile, tachycardia resolved. Clinically she is feeling better, area of abscess is open and draining scant serous material. Discussed with business mgr Dr Asher, no indication for involvement unless not improving with antibiotics. There is no significant erythema. Overall improving. Blood cultures negative, urine cultures negative. Wound culture pending - growing Gram-negative chi and possible Gram-positive cocci. Patient has important appointment tomorrow for lab work/imaging due to infertility workup. She has requested to be discharged home so she can attend this appointment. She understands that the final wound cultures are pending and that her white count is elevated. She will follow the results of the wound culture on the patient portal and discuss the results with her PCP. 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 Return precautions were discussed including recurrent fever, worsening redness, or increasing drainage from wound. seen by wound care nurse who recommended Left Labia - Cleanse with NS moist gauze, or routine showering with soap and water. Apply dry gauze dressing secure in place. Change daily. Acute lactic acidosis due to sepsis and Metformin. resolved with IVF Elevated transaminases due to sepsis outpatient follow up recommended Time Attestation Discharge Coordination Time (in mins): 35 Quality: Safe Use of Opioids Does Pt have an Active Cancer Diagnosis on the Problem List?: No Quality: Stroke Does the patient have a stroke diagnosis?: No Physical Exam Vital Signs: Vital Signs: Last Vital Signs Temp 97.2 F 02/08/25 07:45 Pulse 95 02/08/25 07:45 Resp 18 02/08/25 07:45 BP 118/60 02/08/25 07:45 Pulse Ox 95 02/08/25 07:45 O2 Del Method Room Air 02/08/25 07:45 BMI result Body Mass Index 42.1 Const: General: cooperative, comfortable, no acute distress, alert and awake Nutritional Appearance: obese Orientation/consciousness: patient oriented x3 Resp: Effort & Inspection: normal respiratory effort, able to speak in complete sentences, no respiratory distress and no use of accessory muscles GI: Inspection: Yes obesity : Other: left labia site of I&D with mild surrounding light pink erythema, small area of induration without fluctuance; serous drainage. Neuro: General: patient oriented x3, moves all extremities and CN's II-XI intact bilaterally DS: Data Data Completed and Pending Labs on day of discharge: Laboratory Results - last 24 hr 02/07/25 02/07/25 02/07/25 11:15 15:42 20:02 WBC RBC Hgb Hct MCV MCH MCHC RDW Plt Count MPV Immature Gran % (Auto) Neut % (Auto) Lymph % (Auto) [place] % (Auto) Eos % (Auto) Baso % (Auto) Lymph # (Auto) [place] # (Auto) Eos # (Auto) Baso # (Auto) Abs Immat Gran (auto) Absolute Neuts (auto) Absolute Nucleated RBC Nucleated RBC % (auto) Sodium Potassium Chloride Carbon Dioxide Anion Gap BUN Creatinine Estim Creat Clear Calc Estimated GFR POC Glucose 208 H 212 H Random Glucose Calcium Random Vancomycin 4.9 L 02/07/25 02/08/25 02/08/25 20:17 05:31 07:29 WBC 18.5 H RBC 4.18 L Hgb 12.1 Hct 34.3 L MCV 82.1 MCH 28.9 MCHC 35.3 H RDW 12.6 Plt Count 310 MPV 9.1 L Immature Gran % (Auto) 0.6 H Neut % (Auto) 80.4 H Lymph % (Auto) 9.6 L [place] % (Auto) 8.1 Eos % (Auto) 1.0 Baso % (Auto) 0.3 Lymph # (Auto) 1.8 [place] # (Auto) 1.5 H Eos # (Auto) 0.2 Baso # (Auto) 0.1 Abs Immat Gran (auto) 0.11 H Absolute Neuts (auto) 14.8 H Absolute Nucleated RBC 0.000 Nucleated RBC % (auto) 0.0 Sodium 132 L Potassium 3.9 Chloride 98 Carbon Dioxide 22 Anion Gap 16 BUN 5 L Creatinine 0.59 Estim Creat Clear Calc 163.4 Estimated GFR > 60 POC Glucose 249 H 298 H Random Glucose 288 H Calcium 9.1 Random Vancomycin Preliminary micro results at discharge 02/06/25 23:06 Routine Culture - Preliminary Abdomen - Abscess Gram negative chi 02/06/25 20:30 Blood Culture - Preliminary Blood - Venous No growth after 24 hours. 02/06/25 20:30 Blood Culture - Preliminary Blood - Venous No growth after 24 hours. Discharge Plan Discharge Anticipated Discharge Date/Time: 02/08/25 11:35 Patient Disposition: Home, Self-Care Discharge Diagnosis: left labia abscess Referrals: Cheryl Peralta, MAKSIM [Primary Care Provider, [facility]] - 1 Week Discharge Medications: New amoxicillin-pot clavulanate 875-125 mg tablet 1 tab PO Q12H 8 Days Qty: 16 0RF doxycycline monohydrate 100 mg tablet 100 mg PO BID 8 Days Qty: 16 0RF Continued metformin 1,000 mg tablet 1,000 mg PO BID insulin lispro [Humalog U-100 Insulin] 100 unit/mL solution 34 - 40 unit continuous subcutaneous infusion DIRECTED Rx Instructions: Tandem insulin pump nifedipine 60 mg tablet extended release 24hr 60 mg PO DAILY 28-800 mg-mcg Tablet 1 tab PO DAILY Discharge Orders: Discharge Order (Routine); Ordered 02/08/25 Ordered By: Joan Stein Diet: Diabetic diet Activity on Discharge: As tolerated Stand Alone Forms: Patient Portal Discharge page Print Language: Portuguese Other Ambulatory Orders: Complete Blood Count no Diff (Routine) Timeframe: [id number] Facility: [facility] - Location: Laboratory Ordered By: Joan Stein Care Plan Goals: See below Health Concerns: left labia abscess s/p I&D Plan of Treatment: recommend 8 more days of PO antibiotics wound culture results are pending at the time of discharge Call to schedule follow-up appointment with PCP to review culture results and ensure no antibiotic changes need to be made Monitor for recurrent fever, worsening redness, increasing drainage from wound - return to the nearest ED with any worsening symptoms repeat CBC early next week Wound care nurse recommends: Cleanse with NS moist gauze, or routine showering with soap and water. Apply dry gauze dressing secure in place. Change daily. Assessment: See discharge summary
[2025-02-08 11:26] LABS: Glucose, Whole Blood 242 mg/dL (60-115)
--- NOTE | 2025-02-08 11:49 | MHC.CM.PN ---
PT TO DC HOME TODAY WITH NO SERVICES VIA PRIVATE TRANSPORT
[2025-02-08 12:32] VITALS: BP 130/80; PULSE 98; RESP 18; TEMP 36.1; O2SAT 98
--- NOTE | 2025-02-13 07:03 | PC.NURSE ---
pt was given tylenol for 10/10 pain. pt had a headache and requested tylenol.
== END 2025-02-08 12:45 | disposition home or self-care (01) | DRG 710 ==
LOC: HO.ED 20:55 → HO.EDOVER 22:16 → HO.S3 02-07 07:25
PROVIDERS: Physician Assistant Medical; Student in an Organized Health Care Education/Training Program; Admitting Provider Student in an Organized Health Care Education/Training Program; Emergency Provider Emergency Medicine; Visit Provider Physician Assistant Medical
DX: A41.9 Sepsis, unspecified organism (principal); E87.21 Acute metabolic acidosis; E11.65 Type 2 diabetes mellitus with hyperglycemia; N76.4 Abscess of vulva; N73.2 Unspecified parametritis and pelvic cellulitis; E66.813 Obesity, class 3; Z71.3 Dietary counseling and surveillance; Z68.41 Body mass index [BMI] 40.0-44.9, adult; I10 Essential (primary) hypertension; Z79.4 Long term (current) use of insulin; Z79.84 Long term (current) use of oral hypoglycemic drugs; Z79.899 Other long term (current) drug therapy
CPT/HCPCS: 36415; 74177; 80048; 80053; 80202; 81001; 82947; 83036; 83605; 84702; 85025; 87040; 87070; 87077; 87086; 87147; 87186; 87205; 99285; J0696; J1650; J1885; J2004; J2405; J2543; J3371; J7120; Q9967

== ENCOUNTER 2025-02-06 22:09 | Outpatient (BNV) | payer OTHER, SELFPAY | END 2025-02-07 00:42 | PROVIDERS: Admitting Provider Student in an Organized Health Care Education/Training Program; Emergency Provider Emergency Medicine; Visit Provider Radiology Diagnostic Radiology | DX: L02.211 Cutaneous abscess of abdominal wall (principal) | CPT/HCPCS: 74177 ==

== ENCOUNTER → 2025-02-06 22:09 | Outpatient (BNV) | payer OTHER, SELFPAY | PROVIDERS: Admitting Provider Student in an Organized Health Care Education/Training Program; Emergency Provider Emergency Medicine; Visit Provider Student in an Organized Health Care Education/Training Program | DX: A41.9 Sepsis, unspecified organism (principal); E87.21 Acute metabolic acidosis; N76.4 Abscess of vulva | CPT/HCPCS: 99222; 99233; 99239 ==

== ENCOUNTER 2025-02-09 23:55 | Emergency (ER) | payer OTHER, SELFPAY ==
[2025-02-10 00:09] VITALS: BP 141/78; PULSE 119; RESP 22; TEMP 36.8; O2SAT 98; BMI 41.6
[2025-02-10 00:12] VITALS: BP 141/78; PULSE 119; RESP 22; TEMP 36.8; O2SAT 98
--- NOTE | 2025-02-10 00:12 | ED.GENADULT ---
HPI - General Adult General Chief complaint: Allergic Reaction Stated complaint: diff swallowing, took epi pen Time Seen by Provider: 02/10/25 00:03 Source: patient Mode of arrival: ambulatory Limitations: no limitations History of Present Illness ED Provider: Dr. Amrita Haji HPI narrative: Patient comes to the emergency room complaining of a swelling sensation in her throat. According to the patient, patient went out for dinner and shortly after started having a sensation that her throat was closing up. To patient's knowledge, she has no known allergies to either medications or foods. Patient is on her 2nd day of Augmentin and doxycycline. Patient was discharged 2 days ago for a vulvar abscess. Patient states that she is under some practitioner, went to the pharmacy, got herself an EpiPen an injected herself once. Patient states that she still feels that she has difficulty swallowing, but states that she does not have any difficulty breathing. Patient states that earlier today she might have had a bit of a rash over her chest, but it is no longer present. Related Data Home Medications ?Medication ?Instructions ?Recorded ?Confirmed insulin lispro 100 unit/mL 34 - 40 unit continuous 02/07/25 02/07/25 subcutaneous solution (Humalog subcutaneous infusion DIRECTED U-100 Insulin) metformin 1,000 mg tablet 1,000 mg PO BID 02/07/25 02/07/25 nifedipine 60 mg tablet,extended 60 mg PO DAILY 02/07/25 02/07/25 release 24 hr vit no.133-ferrous 1 tab PO DAILY 02/07/25 02/07/25 fumarate 28 mg-folic acid 800 mcg tablet () Previous Rx's ?Medication ?Instructions ?Recorded amoxicillin 875 mg-potassium 1 tab PO Q12H 8 days #16 tabs 02/08/25 clavulanate 125 mg tablet doxycycline monohydrate 100 mg 100 mg PO BID 8 days #16 tabs 02/08/25 tablet epinephrine 0.3 mg/0.3 mL 0.3 mg (0.3 mL) IM Q10M PRN 02/10/25 injection, auto-injector (EpiPen anaphylaxis #2 ea 2-Sriram) sulfamethoxazole 800 1 tab PO BID #20 tabs 02/10/25 mg-trimethoprim 160 mg tablet (Bactrim DS) Allergies Allergy/AdvReac Type Severity Reaction Status Date / Time No Known Allergies Allergy Verified 02/10/25 00:12 Review of Systems Review of Systems: Constitutional : No Weight loss, No Fever, No Chills, No Night Sweats, No Fatigue, No Malaise ENT/Mouth : No Hearing loss, complaining of swelling sensation in the throat, No Ear Pain, No Nasal Congestion, No Sinus Pain, No Hoarseness, No sore throat, No Rhinorrhea, No Swallowing Difficulty Eyes: No Eye Pain, No Swelling, No Redness, No Foreign Body, No Discharge, No Vision Changes Cardiovascular : No Chest Pain, No SOB, No Dyspnea on Exertion, No Orthopnea, No Edema, No Palpitations Respiratory : No Cough, No Sputum, No Wheezing, No Smoke Exposure, No Dyspnea Gastrointestinal : No Nausea, No Vomiting, No Diarrhea, No Constipation, No abdominal Pain, No Hematochezia, No Melena Genitourinary : no irregular bleeding, No Dysuria, No Urinary Frequency, No Hematuria, No Urinary Incontinence, No Urgency, No Flank Pain, No Urinary Flow Changes, No Hesitancy Musculoskeletal : No joint pain, No Myalgias, No Joint Swelling Skin : Complaining of rash earlier today which self-resolved and station flushing, No Skin Lesions, No rash Neuro : No Weakness, No Numbness, No Paresthesias, No Loss of Consciousness, No Dizziness, No Headache Psych : No Anxiety/Panic, No Depression, No SI/HI/AH/VH, No Social Issues, Heme/Lymph: No Bruising, No Bleeding,No Lymphadenopathy Endocrine : No Polyuria, No Polydipsia, No Temperature Intolerance PMFSH Past Medical History Medical History Non-insulin dependent type 2 diabetes mellitus Hypertension Social History Social History Household Members: Spouse Housing: House Do you presently have visiting nurse or other home services: No Patient Tobacco Use Status: Never used Tobacco Smoked in Last 30 Days: No Use of substances other than those prescribed or required for medical reasons: Yes Substance Use Type: Marijuana Advance Directives: No Advance Directives Information Provided: Yes Patient : No service: No Physical Exam ED Vital Signs: Vital Signs - 24 hr 02/10/25 00:09 02/10/25 00:12 02/10/25 01:47 Temperature 98.3 F 98.3 F Pulse Rate 119 H 119 H 96 Respiratory Rate 22 H 22 H 19 Blood Pressure 141/78 H 141/78 H 131/71 Pulse Oximetry 98 98 96 Oxygen Delivery Method Room Air Room Air Room Air BMI result Body Mass Index 41.6 Const Other: Appearance: Alert. Oriented X3. No acute distress. Eyes: Pupils equal, round and reactive to light. ENT: Patient's oropharynx is erythematous, no obvious abscesses, no flail segments on the soft palate or angioedema, normal tongue, normal lips, uvula is nonedematous and midline Neck: Normal inspection. Neck supple. No lymph nodes noted. No crepitus CVS: Tachycardic, heart rate in the 140s Pulses normal. Normal S1 and S2 Respiratory: No respiratory distress. Breath sounds normal. No Wheezing. No rales Abdomen: Soft and nontender. No rigidity. No distention. Skin: Skin warm and dry. Normal skin color. Normal skin turgor. Extremities: No lower extremity edema. No Lacerations. No Rash Neuro: Oriented X 3. No motor deficit. No sensory deficit. Moving all extremities. No slurred speech. CN 2 through 12 grossly intact Psych: calm, cooperative, normal affect Course Course Course Narrative: Patient is currently tachycardic, patient just injected herself with epinephrine x1. Patient has no wheezing, no difficulty breathing. No angioedema Patient receiving IV fluids, IV Solu-Medrol, famotidine and Solu-Medrol. Basic labs pending Medications Administered Discontinued Medications Generic Name Dose Route Start Last Admin Trade Name Gurdeepq PRN Reason Stop Dose Admin Diphenhydramine HCl 50 mg 02/10/25 00:10 02/10/25 00:18 Diphenhydramine Hcl 50 Mg/Ml Vial IVPUSH 02/10/25 00:11 50 mg ONCE ONE Administration Famotidine 20 mg 02/10/25 00:10 02/10/25 00:18 Famotidine/Pf 20 Mg/2 Ml Vial IVPUSH 02/10/25 00:11 20 mg ONCE ONE Administration Sodium Chloride 1,000 mls @ 999 mls/hr 02/10/25 00:10 02/10/25 01:44 Ns IVCONT 02/10/25 01:10 Infused .Q1H1M ONE Infusion Methylprednisolone Sodium Succinate 125 mg 02/10/25 00:10 02/10/25 00:28 Methylprednisolone Sod Succ 125 Mg Vial IVPUSH 02/10/25 00:11 125 mg ONCE ONE Administration Medical Decision Making Medical Decision Making [facility] Narrative: My interpretation of labs: Patient's white blood cell count is decreasing from yesterday. No significant abnormality in patient's chemistry. I reviewed patient's bacterial growth from her abscess. She grew Proteus mirabilis, susceptible to cephalosporins, ciprofloxacin, gentamicin and Bactrim. Since we are not sure what happened or what she is allergic to, we will go ahead and switch her antibiotics to Bactrim. Patient states that she has had them before (Bactrim) and has not had any secondary side effects or allergic reaction. Patient will follow-up with her primary care physician as she may need a referral to immunology for a skin scratched test to determine if she is allergic to certain antibiotics. Patient agrees with plan. Patient's vitals stable Differential Diagnosis Differential Diagnoses: The differential diagnosis associated with the presentation includes (Anaphylaxis, angioedema, hypersensitivity reaction) Admission/Observation Consideration of admission/observation: Escalation of care including admission/observation considered (Given patient's symptoms and presentation, observation was considered) Lab Data [facility] Lab Attestation statement: I reviewed the patient's lab results. 02/10/25 00:26 02/10/25 00:26 Labs: Lab Results 02/10/25 Range/Units 00:26 WBC 15.8 H (4.8-10.8) X10*3/uL RBC 4.56 (4.20-5.50) X10*6/uL Hgb 13.1 (12.0-16.0) g/dl Hct 38.0 (37.0-47.0) % MCV 83.3 (80.0-98.0) fL MCH 28.7 (27.0-33.0) pg MCHC 34.5 (31.0-35.0) g/dl RDW 12.5 (11.0-16.0) % Plt Count 431 H D (160-400) X10*3/uL MPV 9.2 L (9.4-12.3) fL Immature Gran % (Auto) 0.6 H (0.0-0.4) % Neut % (Auto) 55.4 (45-73) % Lymph % (Auto) 32.4 (20-40) % Hubbard % (Auto) 7.1 (2-11) % Eos % (Auto) 4.1 H (0-4) % Baso % (Auto) 0.4 (0-2) % Lymph # (Auto) 5.1 H (1.2-4.9) X10*3/uL Hubbard # (Auto) 1.1 (0.1-1.2) X10*3/uL Eos # (Auto) 0.7 H (0.0-0.4) X10*3/uL Baso # (Auto) 0.1 (0.0-0.2) X10*3/uL Abs Immat Gran (auto) 0.09 H (0.00-0.03) X10*3/uL Absolute Neuts (auto) 8.8 H (2.0-8.3) x10*3/uL Absolute Nucleated RBC 0.000 (0.0-0.012) X10*3/uL Nucleated RBC % (auto) 0.0 (0.0-0.2) /100WBC Smear Tech's Comments VERIFIED Sodium 138 (135-145) mmol/L Potassium 4.0 (3.3-5.1) mmol/L Chloride 99 (96-108) mmol/L Carbon Dioxide 25 (22-29) mmol/L Anion Gap 18 (12-20) BUN 12 (9-16) mg/dL Creatinine 0.93 (0.5-1.4) mg/dL Estim Creat Clear Calc 102.9 Estimated GFR > 60 Random Glucose 317 H (60-115) mg/dL Calcium 10.0 D (8.4-10.2) mg/dL Critical Care Time Critical Care Time Critical Care Time: Yes Total Critical Care Time: 45 Attestation: I have personally provided critical care time. Time includes review of lab data, radiology results, discussion with consultants, and monitoring for potential decompensation. Intervention performed as documented. Discharge Plan Discharge Clinical Impression: Allergic reaction Patient Disposition: Home, Self-Care Instructions: General Allergic Reaction (ED) Additional Instructions: Please follow-up with your primary care physician tomorrow. If you have any worsening or new symptoms, please return to the emergency room or call 911 Prescriptions: New sulfamethoxazole-trimethoprim [Bactrim DS] 800-160 mg tablet 1 tab PO BID Qty: 20 0RF epinephrine [EpiPen 2-Sriram] 0.3 mg/0.3 mL auto-injector 0.3 mg IM Q10M PRN (Reason: anaphylaxis) Qty: 2 0RF Rx Instructions: for 2 doses No Action metformin 1,000 mg tablet 1,000 mg PO BID insulin lispro [Humalog U-100 Insulin] 100 unit/mL solution 34 - 40 unit continuous subcutaneous infusion DIRECTED Rx Instructions: Tandem insulin pump nifedipine 60 mg tablet extended release 24hr 60 mg PO DAILY 28-800 mg-mcg Tablet 1 tab PO DAILY amoxicillin-pot clavulanate 875-125 mg tablet 1 tab PO Q12H 8 Days Qty: 16 0RF doxycycline monohydrate 100 mg tablet 100 mg PO BID 8 Days Qty: 16 0RF Print Language: Armenian
[2025-02-10] MEDS: 0.9 % Sodium Chloride 1,000 ML 999 ML IVCONT (00:13)
[2025-02-10] MEDS: diphenhydrAMINE HCL 50 MG/ML VIAL IVPUSH (00:18)
[2025-02-10] MEDS: Famotidine/PF 20 MG/2 ML VIAL IVPUSH (00:18)
[2025-02-10 00:38] LABS: Basophils Absolute Auto 0.1 X10*3/uL (0.0-0.2); Basophils Percent Auto 0.4 % (0-2); Eosinophils Absolute Auto 0.7 X10*3/uL (0.0-0.4); Eosinophils Percent Auto 4.1 % (0-4); Hemoglobin 13.1 g/dl (12.0-16.0); Imm Gran Abs Auto 0.09 X10*3/uL (0.00-0.03); Imm Gran Pct Auto 0.6 % (0.0-0.4); Lymphocytes Absolute Auto 5.1 X10*3/uL (1.2-4.9); Lymphocytes Percent Auto 32.4 % (20-40); MANUAL DIFF FLAG SCAN; Mean Corpuscular HGB Conc 34.5 g/dl (31.0-35.0); Mean Corpuscular Hemoglobin 28.7 pg (27.0-33.0); Mean Corpuscular Volume 83.3 fL (80.0-98.0); Mean Platelet Volume 9.2 fL (9.4-12.3); Monocytes Absolute Auto 1.1 X10*3/uL (0.1-1.2); Monocytes Percent Auto 7.1 % (2-11); Neutrophils Absolute Auto 8.8 x10*3/uL (2.0-8.3); Neutrophils Percent Auto 55.4 % (45-73); Platelet Count 431 X10*3/uL (160-400); Red Blood Count 4.56 X10*6/uL (4.20-5.50); Red Cell Distribution Width 12.5 % (11.0-16.0); SCAN SMEAR FLAG 1; White Blood Count 15.8 X10*3/uL (4.8-10.8)
[2025-02-10 00:58] LABS: SLIDE REVIEW VERIFIED
[2025-02-10 01:11] LABS: Anion Gap 18 (12-20); Blood Urea Nitrogen 12 mg/dL (9-16); Carbon Dioxide 25 mmol/L (22-29); Chloride 99 mmol/L (96-108); Creatinine Clr Calc Pharmacy 102.9; Estimated Glomerular Filt Rate > 60; Glucose Random 317 mg/dL (60-115); Sodium 138 mmol/L (135-145)
[2025-02-10 01:47] VITALS: BP 131/71; PULSE 96; RESP 19; O2SAT 96
[2025-02-10 02:33] VITALS: BP 130/76; PULSE 96; RESP 21; O2SAT 97
[2025-02-10 02:58] VITALS: BP 130/76; PULSE 96; RESP 21; TEMP 36.6; O2SAT 97
== END 2025-02-10 03:01 | disposition home or self-care (01) ==
PROVIDERS: Emergency Provider Emergency Medicine
DX: R13.10 Dysphagia, unspecified (principal); T78.1XXA Other adverse food reactions, not elsewhere classified, initial encounter; X58.XXXA Exposure to other specified factors, initial encounter; R11.0 Nausea; Z79.899 Other long term (current) drug therapy
CPT/HCPCS: 36415; 80048; 85025; 96361; 96374; 96375; 99284; J1200; J1308; J2919